=== PATIENT | female | born 1985 | race Caucasian/White ===

== ENCOUNTER 2024-05-11 09:19 | Emergency (ER) | payer OTHER, SELFPAY ==
[2024-05-11 09:21] VITALS: BP 135/93
--- NOTE | 2024-05-11 09:36 | ED.GENMED ---
History of Present Illness
General
Chief Complaint: Abdominal Symptoms
Source: patient
Exam Limitations: none
Time Seen by Provider: 05/11/24 09:27
Nursing documentation reviewed up to this point in time: agreed with
History of Present Illness
History of Present Illness:
38-year-old female with a past medical history of chronic back pain and opioid dependence who is status post total hysterectomy due to chronic vaginal bleeding after presents to the emergency room for evaluation of lower abdominal pain.
Patient reports onset of symptoms about 10 days ago and have been constant since that time. She reports a crampy pain suprapubic region radiates slightly more towards the left. Occasionally will become more sharp. She reports associated diarrhea,
nausea, vomiting. She says she has had some increased urinary frequency and incontinence of urine. She denies any dysuria or hematuria. She reports that she has been having fevers and chills. She says that symptoms have not improved and so
decided to come to the ER for evaluation. She denies any pain in the back or flank. She denies any cough, shortness of breath, chest pain. Denies URI symptoms. She denies similar symptoms in the past.
Past History
Past History
ED Past Medical History: Asthma, Hyperthyroidism and Other (Chronic low back pain, hypokalemia)
ED Past Surgical History: Gynecological (hysterectomy 2019) and Orthopedic (R shoulder surg)
Social History
Tobacco: Smoker
Alcohol: None
Drug: None
Personal: Single
Living: with family
Review of Systems
Review of Systems
All Other Systems: ROS reviewed and negative except as documented in HPI and ROS
Constitutional: Reports fever, fatigue and chills
EENT: Denies sore throat or runny nose
Respiratory: Denies cough or trouble breathing
Cardiac: Denies chest pain or palpitations
ABD/GI: Reports abdominal pain, nausea, vomiting and diarrhea
: Reports frequency and incontinence; Denies dysuria, flank pain or bleeding
Musculoskeletal: Denies neck pain or back pain
Neurological: Denies dizzy or headache
Phy Exam
Physical Exam
Physical Exam:
General: Awake, alert, oriented x3; appears mildly uncomfortable but nontoxic
Head: Normocephalic, atraumatic
Eyes: Conjunctiva normal, sclera anicteric
Throat: Airway intact, handling secretions
Neck: Trachea midline, supple without meningismus
Lungs: Clear to auscultation bilaterally, no wheezing, rales, rhonchi
Heart: Regular rate and rhythm, no murmurs, gallops, or rubs
Abd: Soft, non distended, tender to palpation across lower abdomen maximal in the suprapubic and left lower quadrant; no peritoneal signs, no palpable masses
Back: No CVA tenderness
Neuro: No gross deficits
Skin: no rash
Extremities: Warm well-perfused with no edema
Scores
Heart Failure Risk
Heart Failure Risk Score: Not Applicable
Heart Score for Chest Pain Patients
STEMI patient?: Not applicable
Withdrawal Assessment of Alcohol
Withdrawal Assessment Completed?: Not applicable
Course
Orders/Labs/Results
Orders:
Orders
05/11/24 09:27
Test Result ONCE
05/11/24 09:41
CT Abd/pelvis W Iv Cont Urgent
Comment:
Reason For Exam: lower abd pain (suprapubic-->LLQ)
0.9% Sodium Chloride 1000 ml [Nss] 1,000 ml IV BOLUS
Morphine Sulfate 4 mg IV NOW STA
Ondansetron Injectable [Zofran] 4 mg IV NOW STA
05/11/24 10:04
COVID-19 Antigen Urgent
Source: Nasal Swab
Complete Blood Count/With Diff Urgent
Comprehensive Metabolic Panel Urgent
HCG, Serum Qualitative Screen Urgent
Urinalysis Reflex To Culture Urgent
Date Specimen was Collected: 05/11/24
Time Specimen was Collected: 09:52
Urine Microscopic Reflex Cult Urgent
05/11/24 12:35
STOOL [C difficile Antigen & Toxins] Urgent
RUI Source: Feces/Stool
Specimen Description:
Stool Culture Urgent
RUI Source: Feces/Stool
Specimen Description:
05/11/24 12:37
Ciprofloxacin HCl [Cipro] 500 mg PO ONCE ONE
05/11/24 12:38
Electrocardiogram (*1) Urgent
Reason for Study: QTc Monitoring
EKG- Treatment ONCE
Abnormal Lab Results
05/11/24
10:04
MCH 33.6 H pg
(27.0-31.0)
Absolute Lymphs (auto) 1.0 L 10^3/uL
(1.2-3.4)
Neutrophils % 80.9 H %
(42.2-75.2)
Lymphocytes % 13.3 L %
(20.5-51.1)
Glucose 114 H mg/dl
(70-99)
Total Bilirubin 1.4 H mg/dl
(0.2-1.3)
Urine Ketones 1+ A
(Negative)
Ur Occult Blood Reflex Trace A
(Negative)
Leukocyte Esterase Rfl Trace A
(Negative)
Urine Bacteria (Reflex) Few A
(Negative)
05/11/24 10:04
05/11/24 10:04
Vital Signs
Initial and Last Documented VS:
Initial Vital Signs
Temp Pulse Resp BP Pulse Ox
36.6 C 89 18 135/93 99
05/11/24 09:21 05/11/24 09:21 05/11/24 09:21 05/11/24 09:21 05/11/24 09:21
Last Documented Vital Signs
Temp Pulse Resp BP Pulse Ox
36.6 C 89 18 135/93 98
05/11/24 09:21 05/11/24 09:21 05/11/24 09:21 05/11/24 09:21 05/11/24 10:45
MDM/Problems Addressed
Differential Diagnosis Includes:
Diverticulitis, UTI, colitis/enteritis, nephrolithiasis, appendicitis
MDM/Problems Addressed:
38-year-old female presents for evaluation of lower abdominal pain associate with nausea/vomiting/diarrhea and fever/chills as well as urinary symptoms�ongoing for about 10 days. Vital signs normal here. Physical exam as above. Place an IV check
labs including a CBC and a CMP. Swab for COVID. Will send for CT abdomen pelvis. Provide fluids, antiemetic, pain medication. Monitor closely reassess after the above.
Labs reviewed: CBC unremarkable, CMP no clinically significant abnormalities. Urinalysis negative for infection. COVID-negative. CT abdomen pelvis shows signs consistent with colitis which fits with her clinical picture of diarrhea with fever and
chills. No recent antibiotics or travel reported. Unable to provide stool sample here. Diarrhea is nonbloody however given the duration of symptoms she says for 10 days I think it is reasonable to cover with antibiotics. Her symptoms are
controlled here think she is stable for discharge. Allergic to penicillin and azithromycin, will start on Cipro x 5 days twice daily. Advised to return here with worsening symptoms or failure to improve in the next 48 to 72 hours. She feels
comfortable with this plan, indicated understanding. All questions answered.
*Radiology
Radiology exam reviewed: radiology read reviewed
*Pulse Oximetry
Patient hypoxic: no
*Critical Care Note
Total Time (30-74mins, 75-104mins- exclusive of procedures): Not Applicable
Data Reviewed
Source: patient and records
ED Attending Note
-
Portions of this chart may have been created with voice recognition software.� Occasional wrong word or��sound alike� substitutions may have occurred due to the inherent limitations of voice recognition software.
Discharge Plan
Departure
Patient Disposition: Home (Routine Discharge)
Date of Disposition: 05/11/24
Time of Disposition: 12:43
Patient with high blood pressure during this ER visit?: No
Discharge Problem:
Colitis
Instructions: Clear Liquid Diet, [place] Diet, Nausea and Vomiting, Adult (DC), Acute Diarrhea
Prescriptions:
New
ciprofloxacin HCl [Cipro] 500 mg tablet
500 mg PO BID 5 Days Qty: 10 0RF
ondansetron 4 mg tablet,disintegrating
4 mg PO BID PRN (Reason: nausea and vomiting) Qty: 10 0RF
No Action
levothyroxine 112 MCG tablet
112 mcg PO DAILY
oxycodone-acetaminophen 5 MG/325 MG tablet
1 tab PO TID PRN (Reason: pain) Qty: 12 0RF
ondansetron 4 mg tablet,disintegrating
4 mg PO TIDPRN PRN (Reason: nausea/vomiting) Qty: 7 0RF
Referrals:
NONE,* [Family Provider] -
Activity Restrictions/Additional Instructions:
Thank you for visiting the Emergency Department at [facility].
1. Please schedule a follow up appointment as directed. Call first thing tomorrow morning to make an appointment.
2. If indicated, please take your medications as instructed and indicated on discharge paperwork.
3. If any of your symptoms do not improve, or persist, or become more severe within 6-12 hours, please return to the emergency department for further care.
4. Please return to the emergency department if you develop a headache, neck pain/stiffness, fever greater than 100.4F, chest pain, shortness of breath, persistent nausea, vomiting, slurred speech, difficulty walking, numbness/tingling, weakness,
signs of infection or any other symptoms that are worrisome to you.
Please call [phone] if you have any questions.
Interventions
Interventions:
*Risk Screen - Suicide Last Done: 05/11/24 10:29
*General Assessment Last Done: 05/11/24 09:21
*Neglect/Abuse Screening Last Done: 05/11/24 10:29
ED- Fall Risk Assessment Last Done: 05/11/24 10:30
*ED COVID-19 Vaccine History Last Done: 05/11/24 09:21
QU-Nljdjw-Luzbcluvut Assessment Last Done: 05/11/24 10:30
Discharge Date and Time
Print Language: KENYAN
[2024-05-11] MEDS: ZOFRAN 4 MG IV (10:05)
[2024-05-11] MEDS: NSS 1000 IV (10:05)
[2024-05-11] MEDS: MORPHINE SULFATE 4 MG IV (10:05)
[2024-05-11 10:13] VITALS: BMI 34.4
[2024-05-11 10:25] LABS: Urine Albumin Trace (Neg - Trace); Urine Bilirubin Negative (Negative); Urine Character Clear (Clear); Urine Color Yellow; Urine Glucose Negative (Negative); Urine Ketone 1+ (Negative); Urine Leukocyte Trace (Negative); Urine Nitrite Negative (Negative); Urine Occult Blood Trace (Negative); Urine Urobilinogen Negative (Neg - 1+)
[2024-05-11 10:35] LABS: COVID-19 Antigen Negative (Negative)
[2024-05-11 10:36] LABS: HCG, Serum Qualitative Screen Negative
[2024-05-11 10:39] LABS: % Basophils 0.3 % (0-2); % Immature Granulocytes 0.3 % (0-0.5); % Lymphocytes 13.3 % (20.5-51.1); % Monocytes 5.2 % (1.7-9.3); % Neutrophils 80.9 % (42.2-75.2); Absolute Monocytes 0.4 10^3/uL (0.1-0.6); Absolute Neutrophils 5.9 10^3/uL (1.4-6.5); Hematocrit 41.6 % (37.0-47.0); Hemoglobin 15.2 g/dL (12.0-16.0); Mean Corp Hgb Conc. 36.5 g/dL (33.0-37.0); Mean Corpuscular Hgb 33.6 pg (27.0-31.0); Mean Corpuscular Volume 91.8 fL (81.0-99.0); Mean Platelet Volume 10.1 fL (7.4-10.4); Nucleated Red Blood Cells % 0 %; Platelet Count 200 10^3/uL (130-400); Red Blood Cell Count 4.53 10^6/uL (4.20-5.40); Red Cell Dist. Width 11.9 % (11.5-14.5); White Blood Cell Count 7.3 10^3/uL (4.8-10.8)
[2024-05-11 10:43] LABS: ALT (SGPT) 13 U/L (0-35); AST (SGOT) 25 U/L (14-36); Albumin 4.7 g/dl (3.5-5.0); Alkaline Phosphatase 89 U/L (38-126); Blood Urea Nitrogen 11 mg/dl (7-17); Calcium 10.1 mg/dl (8.4-10.2); Carbon Dioxide 22 mmol/L (22-30); Chloride 104 mmol/L (98-107); Estimated Creatinine Clearance 119 ml/min; Glucose 114 mg/dl (70-99); Total Bilirubin 1.4 mg/dl (0.2-1.3); Total Protein 7.5 g/dl (6.3-8.2); eGFR > 60.00
[2024-05-11 11:06] LABS: Sodium 140 mmol/L (135-145); Urine Squamous Cell >30 /LPF (Few)
[2024-05-11 11:07] LABS: Urine Urothelial Cell 0-2 /LPF (FEW)
[2024-05-11 11:08] LABS: Urine Bacteria Few (Negative); Urine Red Blood Cell 0-2 /HPF (0-2); Urine White Cell 0-2 /HPF (0-5)
[2024-05-11 12:08] VITALS: BP 126/81
[2024-05-11] MEDS: CIPRO 500 MG PO (12:46)
[2024-05-11 13:00] VITALS: BP 104/80
[2024-05-11 13:28] VITALS: BP 104/80
== END 2024-05-11 13:29 | disposition home or self-care (01) ==
LOC: EMR 09:19
PROVIDERS: EMERGENCY PHYSICIAN Emergency Medicine
DX: K52.9 Noninfective gastroenteritis and colitis, unspecified (principal); F17.200 Nicotine dependence, unspecified, uncomplicated; F11.20 Opioid dependence, uncomplicated
CPT/HCPCS: 99285; 96374; 96375; 96361; 74177; 80053; 81003; 81015; 84703; 85025; 87811; 93005; Q9967

== ENCOUNTER 2024-05-14 10:06 | Inpatient (IN) | payer OTHER, SELFPAY ==
[2024-05-14] VITALS (8 sets, daily range): BP systolic 108–151; BP diastolic 52–98; BMI 32.9
--- NOTE | 2024-05-14 08:41 | ED.GENMED ---
History of Present Illness
General
Chief Complaint: Abdominal Pain
Time Seen by Provider: 05/14/24 08:19
History of Present Illness
History of Present Illness:
38-year-old female presents to the emergency department for evaluation of worsening abdominal pain, vomiting, and diarrhea, was seen May 11 and diagnosed with acute colitis by CT scan. She was discharged on ciprofloxacin. States that she is
unable to tolerate her antibiotics over the past 24 hours due to vomiting. Also notes blood in her stool and that is distinctly new compared to prior symptoms. Denies any fevers or chills
Past History
Past History
ED Past Medical History: Asthma, Hyperthyroidism and Other (Chronic low back pain, hypokalemia)
ED Past Surgical History: Gynecological (hysterectomy 2019) and Orthopedic (R shoulder surg)
Social History
Tobacco: Smoker
Alcohol: None
Drug: None
Personal: Single
Living: with family
Review of Systems
Review of Systems
Allergies reviewed?: Yes
All Other Systems: ROS reviewed and negative except as documented in HPI and ROS
Phy Exam
Physical Exam
Physical Exam:
GEN: Ill appearing, vomiting
HEENT: Oral mucosa moist, no scleral icterus
Cardiac: Regular rate
Lung: No respiratory distress, no tachypnea
Abdomen: Soft, tender to all four quadrants
MSK: No gross deformity or injuries
Skin: Good color, no pallor or jaundice, no rashes
Neuro: AO x3, moves all extremities freely
Psych: Calm, cooperative
Course
Orders/Labs/Results
Orders:
Orders
05/14/24 08:38
Stool Culture Urgent
RUI Source: Feces/Stool
Specimen Description:
0.9% Sodium Chloride 1000 ml [Nss] 1,000 ml IV BOLUS
05/14/24 08:40
Electrocardiogram (*1) Urgent
Reason for Study: QTc Monitoring
EKG- Treatment ONCE
Morphine Sulfate 4 mg IV NOW STA
Ondansetron Injectable [Zofran] 4 mg IV NOW STA
05/14/24 08:43
Complete Blood Count/With Diff Urgent
Comprehensive Metabolic Panel Urgent
Lipase Urgent
05/14/24 09:54
Admit/Transfer Patient As Directed
Co-Sign Provider:
Level of Care: Inpatient admission
Assign to:: Medical/Surgical
Physician / Group: Hospitalist
Diagnosis: Colitis
Reason for Hospitalization: .
Expected length of stay greater than two midnights?: Yes
ELOS- Estimated Length of Stay in days: 3
I certify the patient meets the requirements for IP care: Yes
05/14/24 12:11
Consult Gastroenterology [GASTROINTESTINAL CONSULT] Routine
Consulting Provider: Lisa Baker
Was physician already notified: Yes
Reason for consult: Colitis
DX Deep Vein Thrombosis Video Routine
05/14/24 20:00
Heparin 5,000 units SC Q12
Abnormal Lab Results
05/14/24
08:43
WBC 4.7 L 10^3/uL
(4.8-10.8)
MCH 33.3 H pg
(27.0-31.0)
BUN 6 L mg/dl
(7-17)
Glucose 103 H mg/dl
(70-99)
05/14/24 08:43
05/14/24 08:43
Vital Signs
Initial and Last Documented VS:
Initial Vital Signs
Temp Pulse Resp BP Pulse Ox
97.9 F 84 18 151/95 100
05/14/24 07:27 05/14/24 07:27 05/14/24 07:27 05/14/24 07:27 05/14/24 07:27
Last Documented Vital Signs
Temp Pulse Resp BP Pulse Ox
97.6 F 56 16 145/74 98
05/14/24 12:15 05/14/24 12:15 05/14/24 12:15 05/14/24 12:15 05/14/24 12:15
MDM/Problems Addressed
MDM/Problems Addressed:
Due to the patient's progression of symptoms and lack of improvement antibiotics will admit to the hospital. IV antibiotics with stool cultures provided. Do not feel that there is any indication for repeat imaging at this time
*Critical Care Note
Total Time (30-74mins, 75-104mins- exclusive of procedures): Not Applicable
ED Attending Note
-
Portions of this chart may have been created with voice recognition software.� Occasional wrong word or��sound alike� substitutions may have occurred due to the inherent limitations of voice recognition software.
Discharge Plan
Departure
Patient Disposition: Admit
Date of Disposition: 05/14/24
Time of Disposition: 09:46
Admit to: Med/Surg
Presentation/result/management discussed w/ accepting MD/DO: Hospitalist
Discharge Problem:
Colitis
Interventions
Interventions:
*Risk Screen - Suicide Last Done: 05/14/24 08:00
*General Assessment Last Done: 05/14/24 08:00
*Neglect/Abuse Screening Last Done: 05/14/24 08:00
ED- Fall Risk Assessment Last Done: 05/14/24 08:00
*ED COVID-19 Vaccine History Last Done: 05/14/24 12:15
PH-Vocekx-Jrkhedoqbj Assessment Last Done: 05/14/24 08:00
[2024-05-14 09:10] LABS: ALT (SGPT) 11 U/L (0-35); AST (SGOT) 22 U/L (14-36); Albumin 4.6 g/dl (3.5-5.0); Alkaline Phosphatase 82 U/L (38-126); Blood Urea Nitrogen 6 mg/dl (7-17); Calcium 10.1 mg/dl (8.4-10.2); Carbon Dioxide 22 mmol/L (22-30); Chloride 104 mmol/L (98-107); Glucose 103 mg/dl (70-99); Lipase 91 U/L (23-300); Sodium 140 mmol/L (135-145); Total Bilirubin 1.2 mg/dl (0.2-1.3); Total Protein 7.4 g/dl (6.3-8.2); eGFR > 60.00
[2024-05-14 09:12] LABS: % Basophils 0.4 % (0-2); % Eosinophils 0.2 % (0-6); % Immature Granulocytes 0.2 % (0-0.5); % Monocytes 6.4 % (1.7-9.3); % Neutrophils 67.8 % (42.2-75.2); Absolute Lymphocytes 1.2 10^3/uL (1.2-3.4); Absolute Monocytes 0.3 10^3/uL (0.1-0.6); Absolute Neutrophils 3.2 10^3/uL (1.4-6.5); Hematocrit 42.2 % (37.0-47.0); Hemoglobin 15.6 g/dL (12.0-16.0); Mean Corpuscular Hgb 33.3 pg (27.0-31.0); Mean Corpuscular Volume 90.2 fL (81.0-99.0); Mean Platelet Volume 10.1 fL (7.4-10.4); Nucleated Red Blood Cells % 0 %; Platelet Count 210 10^3/uL (130-400); Red Blood Cell Count 4.68 10^6/uL (4.20-5.40); Red Cell Dist. Width 11.9 % (11.5-14.5); White Blood Cell Count 4.7 10^3/uL (4.8-10.8)
[2024-05-14] MEDS: ZOFRAN 4 MG IV ×3 (09:17→19:24)
[2024-05-14] MEDS: MORPHINE SULFATE 4 MG IV (09:17)
[2024-05-14] MEDS: NSS 1000 IV ×3 (09:17→20:16)
--- NOTE | 2024-05-14 09:51 | HPS.HSE ---
Family Physician
-
Family Physician: Jose Zamora
Chief Complaint
-
Abdominal pain with nausea vomiting and diarrhea for a few days duration, inability to tolerate oral antibiotics at home
History of Present Illness
38 years old female presented to the emergency room on May 11 with abdominal pain. She had nausea, vomiting and diarrhea. She denied fevers.
Scan of the abdomen and pelvis showed colitis and patient was discharged from the ER on oral ciprofloxacin. She did not have leukocytosis. Patient reported that she could not tolerate oral antibiotics at home and did not take any pills. She
presented today with abdominal discomfort, history of nausea, vomiting and diarrhea. She did not have vomiting or diarrhea in the emergency room. She did not have leukocytosis or fever. She was given intravenous morphine and Zofran with IV fluid
and she started to feel better. Patient has a chronic pain syndrome and reports taking Percocet at home, no recent prescription was filled per [facility]
Medical History
Past Medical History
Past Medical History: Reports Hypothyroidism and Other (back pain )
Past Surgical History: Reports None
Social History
Tobacco: Smoker
Alcohol: None
Drug: None
Personal:
Living: With Family
Employment: Not Employed
Family History
Family History: Not pertinent and Other (She denied history of inflammatory bowel disease )
Allergies / Home Medications
Allergies reflects when Allergies were last updated in [facility].
Home Medications with original date entered in [facility]
Allergy/Medication List:
Allergies
Allergy/AdvReac Type Severity Reaction Status Date / Time
azithromycin Allergy Unknown Hives Verified 05/11/24 09:23
aspirin Allergy red spots Verified 05/11/24 09:23
on skin
latex Allergy itching;swe Verified 05/11/24 09:23
lling
Penicillins Allergy Hives;swell Verified 05/11/24 09:23
ing
Home Medications
levothyroxine 112 mcg tablet 112 mcg PO DAILY Thyroid 11/15/21
oxycodone-acetaminophen 5 mg-325 mg tablet 1 tab PO TID PRN pain #12 tabs 10/05/21
ondansetron 4 mg disintegrating tablet 4 mg PO TIDPRN PRN nausea/vomiting #7 tabs 11/20/22
ciprofloxacin HCl 500 mg tablet (Cipro) 500 mg PO BID 5 days #10 tabs 05/11/24
ondansetron 4 mg disintegrating tablet 4 mg PO BID PRN nausea and vomiting #10 tabs 05/11/24
Review of Systems
-
History Source: Patient
A 12 point ROS was completed and negative except as noted: Yes
Constitutional: Denies Fever
EENT: Denies Sore Throat
Respiratory: Denies Cough
Cardiac: Denies Chest Pain
Abdomen/GI: Reports Abdominal Pain, Nausea, Vomiting and Diarrhea
: Denies Bleeding
Musculoskeletal: Reports Other (chronic back pain ); Denies Muscle Stiffness
Skin: Denies Rash
Neurological: Denies Numbness
Endocrine: Denies Temp Intolerance
Hematologic/Lymphatic: Denies Bruising
Psych: Denies Panic Disorder
Physical Exam
Vital Signs
Vital Signs
Temp Pulse Resp BP Pulse Ox
97.9 F 64 19 151/95 100
05/14/24 07:27 05/14/24 08:30 05/14/24 08:30 05/14/24 07:27 05/14/24 08:30
Physical Exam
General: No Apparent Distress and Comfortable
HEENT: Moist mucous membranes and Atraumatic
Respiratory: Clear
Cardiac: S1/S2 and Regular Rhythm
GI: Soft, Non Distended, Tender (lower abdomen ) and Other
Genito-urinary: No costovertebral tender
Musculoskeletal: No Clubbing, No Cyanosis and No Edema
Skin: Warm and Dry
Neuro: AO x 3 and Nonfocal/grossly intact
Psych: Calm and Intact Judgment/Insight
Laboratory Results
-
05/14/24 08:43
05/14/24 08:43
Laboratory Results
Total Bilirubin 1.2 mg/dl (0.2-1.3) 05/14/24 08:43
AST 22 U/L (14-36) 05/14/24 08:43
ALT 11 U/L (0-35) 05/14/24 08:43
Alkaline Phosphatase 82 U/L (38-126) 05/14/24 08:43
Lipase 91 U/L (23-300) 05/14/24 08:43
Impression/Plan
-
38 years old female presented with abdominal pain.
# Acute colitis of the transverse and descending colon, possible acute gastroenteritis related to food
Patient reported that started 10 days after eating a sandwich.
She reports inability to tolerate oral antibiotics at home.
She reported blood streaks that was seen upon wiping herself at home yesterday.
She reports pain is lower abdominal and generalized.
No fever, no leukocytosis.
No hypotension or tachycardia. No hypokalemia.
Will start the patient on supportive care including IV fluid, pain medicine and nausea medicine
Empiric ciprofloxacin
Obtain stool cultures if possible
No family history inflammatory bowel disease
Appreciate GI input
# History of chronic pain, use oxycodone at home.
Part the protocol, will do urine drug screen
Will follow
# Tobacco use, will give nicotine patch
# Hypothyroidism, continue Synthroid
# DVT and GI prophylaxis
Total time spent to see the patient, examine the patient on the floor, review data and lab results, and discuss the treatment plan with the patient, GI doctor, ED doctor and nursing staff around 75 minutes
--- NOTE | 2024-05-14 12:02 | CON.GI ---
Consultation
-
Date/Time Consultation Requested: 05/14/24
Date/Time Consultation Performed: 05/14/24
Requesting Provider: Dr. Henriquez
Performing Provider: Dr. Orr
Reason for Consultation: N/V/Diarrhea, colitis
Medical History
Chief Complaint / HPI
Chief Complaint: N/V/D
History of Present Illness:
Ani Mercado is a 38 y.o. female w/ pmhx hypothyroidism, chronic pain on narcotics, tobacco abuse who presents with intractable nausea, vomiting and diarrhea x 13 days. She was initially seen in the ER on May 11, found to have colitis on
imaging. It was presumed to be infectious and she was given a course of Ciprofloxacin, discharged home. However, she states due to her persistent nausea/vomiting, she was unable to tolerate the antibiotics and did not take any of the pills. She
returns today with ongoing symptoms, for which GI is consulted for. She states she has lost about 25 lb since symptom onset as she has been unable to tolerate PO. She is afebrile and hemodynamically stable. She received IV morphine and zofran upon
arrival, with improvement in symptoms. No episodes of diarrhea since admission. She also admits to some streaks of bright red blood with wiping, scant, mostly on toilet paper, stool is brown. She reports since she was a child being chronically
constipated, but never thought it was abnormal. She reports moving her bowels only once per month!! She denies family history of celiac disease, inflammatory bowel disease, CRC or colon polyps. She has never had a colonoscopy before.
Labs:
Tbili 1.4 --> 1.2, AST 22, aLT 11, Alk phos 82, Lipase 91, BUN 6/Cr. 0.8, WBC 4.7, Hgb 15.6, Plt 210
CT A/P w/ IV Contrast 05/11/24: Punctate hypodensity within the left hepatic lobe, too small to accurately characterize, but likely represents cyst and appears unchanged from prior study. Bile ducts, gallbladder and pancreas appear normal. Spleen is
mildly enlarged. There is mild wall thickening of the transverse and descending colon. Evidence of hysterectomy. Tiny fat-containing umbilical hernia.
Past Medical History
Past Medical History: Hypothyroidism and Other (chronic pain)
Past Surgical History: Other (hysterectomy )
Social History
Tobacco: Smoker
Alcohol: None
Drug: None
Personal:
Living: Alone
Employment: Not Employed
Family History
Family History: Reviewed & Not Pertinent
Allergies / Home Medications
Allergy/AdvReac Type Severity Reaction Status Date / Time
azithromycin Allergy Unknown Hives Verified 05/11/24 09:23
aspirin Allergy red spots Verified 05/11/24 09:23
on skin
latex Allergy itching;swe Verified 05/11/24 09:23
lling
Penicillins Allergy Hives;swell Verified 05/11/24 09:23
ing
�Medication �Instructions �Recorded
levothyroxine 112 mcg tablet 112 mcg PO DAILY Thyroid 07/22/21
oxycodone-acetaminophen 5 mg-325 1 tab PO TID PRN pain #12 tabs 10/05/21
mg tablet
ondansetron 4 mg disintegrating 4 mg PO TIDPRN PRN nausea/vomiting 11/20/22
tablet #7 tabs
ciprofloxacin HCl 500 mg tablet 500 mg PO BID 5 days #10 tabs 05/11/24
(Cipro)
ondansetron 4 mg disintegrating 4 mg PO BID PRN nausea and 05/11/24
tablet vomiting #10 tabs
Review of Systems
-
History Source: Patient
Vital Signs
Temp Pulse Resp BP Pulse Ox
97.9 F 54 10 125/86 98
05/14/24 07:27 05/14/24 11:15 05/14/24 11:15 05/14/24 10:00 05/14/24 11:15
Physical Exam
Exam
GENERAL: In no acute distress
ABDOMEN: Obese; +BS; soft, non-tender and non-distended;MATEUSZ: external hemorrhoids, +light brown stool
Results
WBC 4.7 10^3/uL (4.8-10.8) L 05/14/24 08:43
Hgb 15.6 g/dL (12.0-16.0) 05/14/24 08:43
Hct 42.2 % (37.0-47.0) 05/14/24 08:43
MCV 90.2 fL (81.0-99.0) 05/14/24 08:43
Plt Count 210 10^3/uL (130-400) 05/14/24 08:43
Absolute Neuts (auto) 3.2 10^3/uL (1.4-6.5) 05/14/24 08:43
Sodium 140 mmol/L (135-145) 05/14/24 08:43
Potassium 4.0 mmol/L (3.5-5.1) 05/14/24 08:43
Chloride 104 mmol/L (98-107) 05/14/24 08:43
Carbon Dioxide 22 mmol/L (22-30) 05/14/24 08:43
BUN 6 mg/dl (7-17) L 05/14/24 08:43
Creatinine 0.8 mg/dL (0.6-1.0) 05/14/24 08:43
Calcium 10.1 mg/dl (8.4-10.2) 05/14/24 08:43
Total Bilirubin 1.2 mg/dl (0.2-1.3) 05/14/24 08:43
AST 22 U/L (14-36) 05/14/24 08:43
ALT 11 U/L (0-35) 05/14/24 08:43
Alkaline Phosphatase 82 U/L (38-126) 05/14/24 08:43
Lipase 91 U/L (23-300) 05/14/24 08:43
Diagnostic Image Results:
Prior GI Procedures:
EGD:
Colonoscopy:
Assessment / Plan
-
38 y.o. female w/ pmhx hypothyroidism, chronic pain on narcotics, chronic constipation admitted for persistent nausea, vomiting and diarrhea x13 days, found to have colitis on imaging.
#Nausea/Vomiting
#Diarrhea
#Colitis--mild wall thickening of the transverse and descending colon
-Suspect clinical presentation is 2/2 viral gastroenteritis vs. less likely bacterial vs. inflammatory, though, low suspicion for this given lack of chronicity
-Small volume rectal bleeding, normal H&H with external hemorrhoids on exam, brown stool. Suspect benign anorectal pathology, however, given abnormal CT inconjunction with reported rectal bleeding, would advise outpatient colonoscopy to further
evaluate.
-Check TSH, celiac serologies, CRP
-if patient has diarrhea while in the hospital, please check stool culture, stool wbc, c.diff, giardia, O&P, fecal calprotectin
-supportive care, antiemetics
-OP f/u with GI for colonoscopy
-once acute illness resolves, need outpatient management of constipation given reported once monthly BMs-- anticipate she may require prolonged prep
Data Reviewed
-
CT Scan: Report Reviewed by me
-
-
Thank you for consultation and allowing me to participate in the patient's care. Please call the foreign legal consultant GI physician during the after hours with any questions or concerns.
[2024-05-14] MEDS: PROTONIX IV 40 MG IV (12:53)
[2024-05-14] MEDS: PERCOCET 5/325 2 TABLET PO ×3 (12:53→21:36)
[2024-05-14] MEDS: NICODERM TRANSDERMAL 14 MG TRANSDERM (13:10)
--- NOTE | 2024-05-14 13:41 | PTCARENOTE ---
Received patient from ED into room 2121. Patient AAOx3, VSS, ambulatory in room independently. Patient c/o generalized weakness d/t dehydration, poor appetite and recent weight loss >30 lbs d/t N/V/D and inability to keep food down. Patient started
on IVF at 125 ml/hr, full liquid diet entered. Patient c/o nausea and lower abdominal pain rated 9/10, medicated with PRN zofran and percocet - see NOV. MD made aware of patient complaints. Outstanding urine and stool samples noted and patient made
aware of need for samples. Patient states she is an everyday smoker, nicotine patch ordered and applied to L upper arm. Patient oriented to room and call chatman, states no concerns at this time.
[2024-05-14 14:02] LABS: Marijuana Positive (Negative); Tricyclic Antidepressants Negative (Negative)
[2024-05-14 14:03] LABS: Amphetamines Negative (Negative); Barbiturates Negative (Negative); Benzodiazepines Negative (Negative); Buprenorphine Negative (Negative); Cocaine Negative (Negative); Methadone Negative (Negative); Methamphetamines Negative (Negative); Opiates Positive (Negative); Phencyclidine Negative (Negative)
[2024-05-14 14:22] LABS: Fentanyl, Urine Negative (Negative)
--- NOTE | 2024-05-14 18:12 | PTCARENOTE ---
Patient voided in bathroom 100 ml yellow urine, sample sent down for UA; Patient bladder scanned post void per nephrology order, scan obtained with second RN Arina at bedside for 352 ml. Patient states she has urinated in bathroom 5-6 times today and
feels she is emptying bladder each time, denies any abdominal pain or pressure. Belly round, full, ascites. + bowel sounds, patient reports no BM today. Nephrology made aware of bladder scan, no new orders at this time.
--- NOTE | 2024-05-14 18:35 | PTCARENOTE ---
Patient reports no BM on this shift, continues with lower abdominal pain/cramping rated 9/10. PRN percocet given, order for K pad to lower abdomen placed by this RN.
[2024-05-14] MEDS: HEPARIN 5000 UNITS SC (20:14)
[2024-05-15] MEDS: PERCOCET 5/325 2 TABLET PO ×6 (01:37→22:24)
[2024-05-15] MEDS: NSS 1000 IV ×3 (04:03→23:42)
[2024-05-15] MEDS: SYNTHROID 112 MCG PO (04:09)
[2024-05-15] MEDS: ZOFRAN 4 MG IV ×3 (05:36→18:01)
[2024-05-15 07:05] VITALS: BP 115/73
[2024-05-15] MEDS: HEPARIN 5000 UNITS SC ×2 (07:57→19:50)
[2024-05-15] MEDS: NICODERM TRANSDERMAL 14 MG TRANSDERM (07:57)
[2024-05-15] MEDS: PROTONIX IV 40 MG IV (07:57)
[2024-05-15] MEDS: NSS (PRESERVATIVE FREE) 10 ML IV (08:35)
--- NOTE | 2024-05-15 09:18 | W.PN.HOSP.TC ---
Addendum entered and electronically signed by Ameya Henriquez MD 05/15/24 13:01:
Addendum
Failed advancing diet. Had nausea and one-time vomiting
Possible marijuana induced versus opioid induced. CT of abdomen and pelvis done 05/[address] back on liquid diet
Will order IV Reglan as needed
Will order empiric IV Rocephin
Will order repeat CT of abdomen and pelvis with IV and oral contrast
Will reach out to GI doctor to reevaluate
End
Total time spent to see the patient, examine the patient on the floor, review data and lab results, discuss the treatment plan with the patient, GI doctor, nursing staff around 55 minutes
Original Note:
Today's Communication/Plan
-
Likely dc today if tolerates diet to follow with GI in office
Adjust Synthroid dose,
Assessment / Plan
Assessment / Plan
Physical Exam
General: No Apparent Distress and Comfortable
HEENT: Moist mucous membranes and Atraumatic
Respiratory: Clear
Cardiac: S1/S2 and Regular Rhythm
GI: Soft, Non Distended, not Tender. Good bowel sounds.
Genito-urinary: No costovertebral tender
Musculoskeletal: No Clubbing, No Cyanosis and No Edema
Skin: Warm and Dry
Neuro: AO x 3 and Nonfocal/grossly intact
Psych: Calm and Intact Judgment/Insight.
38 years old female presented with abdominal pain.
# Acute colitis of the transverse and descending colon, possible acute gastroenteritis related to food. Patient reported that started 10 days after eating a sandwich.
No fever, no leukocytosis.
No hypotension or tachycardia. No hypokalemia.
No family history inflammatory bowel disease
Holding off on antibiotics due to clinical improvement
She feels better, would like to try regular food. She is taking Percocet but for her back pain
Appreciate GI input
# History of chronic pain, use oxycodone at home.
Part the protocol, urine drug screen positive for opiates and Marijuana
# Tobacco use, given nicotine patch, counseled to quit, she verbalized understanding
# Hypothyroidism, continue Synthroid
High TSH, counseled to taker her pills and on empty stomach, increased dose to 125 mcg for now, f/w PCP in office
# DVT and GI prophylaxis
Total discharge time spent to see the patient, examine the patient on the floor, review data and lab results, and discuss the discharge plan with the patient, GI doctor and nursing staff around 65 minutes
Anticipated Discharge: Today
Subjective/Interval History
-
Date of Service: May 15, 2024
No vomiting or diarrhea over night
She feels better, would like to try regular food
No fevers
Objective Data
-
Vital Signs:
Vital Signs
Temp Pulse Resp BP Pulse Ox
97.7 F 55 16 115/73 100
05/15/24 07:05 05/15/24 07:05 05/15/24 07:05 05/15/24 07:05 05/15/24 07:05
I&O
05/14/24 05/15/24 05/16/24
06:59 06:59 06:59
Intake Total 1200 / 1200
Output Total 150 / 150
Balance 1050 / 1050
--- NOTE | 2024-05-15 11:10 | CM ---
Met with patient at bedside; initial assessment completed
Pharmacy verified: [facility] @ [address] [facility], [place]
NO Family Physician: provided contact information for Family Medicine Residency Practice
Lives in an Apartment with 2 children ages 14 & 6; 4 steps to enter; bath has tub w/ shower
PLOF: independent with ambulation, stairs, and ADLs
NO DME
NO SNF history
Does not Drive
Significant other, Brian, will provide transport home
Plan: discharge to home; no needs
--- NOTE | 2024-05-15 13:00 | PTCARENOTE ---
Patient advanced to LR diet. Patient took two bites of sandwich and had N/V. MD made aware. Pt. placed on CLD. CAT of abd ordered with oral contrast. Patient updated at bedside.
[2024-05-15] MEDS: REGLAN 10 MG IV ×2 (13:58→22:25)
[2024-05-15] MEDS: OMNIPAQUE 50 ML PO (13:58)
[2024-05-15 15:10] VITALS: BP 131/82
--- NOTE | 2024-05-15 16:27 | CHAP ---
Ms. Mercado was welcoming - appreciated prayer. Emotional and spiritual support provided.
[2024-05-15] MEDS: STERILE WATER FOR INJECTION 10 ML IV (17:30)
[2024-05-15] MEDS: ROCEPHIN 1000 MG IV (17:31)
[2024-05-15 23:30] VITALS: BP 96/58
[2024-05-15 23:56] LABS: IgA 125 mg/dl (70-400)
[2024-05-16 00:27] VITALS: BP 120/60
[2024-05-16] MEDS: ZOFRAN 4 MG IV ×2 (03:05→11:31)
[2024-05-16] MEDS: PERCOCET 5/325 2 TABLET PO ×3 (03:05→11:32)
[2024-05-16] MEDS: SYNTHROID 112 MCG PO (05:10)
[2024-05-16] MEDS: NSS 1000 IV (05:10)
[2024-05-16 07:05] VITALS: BP 122/64
[2024-05-16] MEDS: NICODERM TRANSDERMAL 14 MG TRANSDERM (07:31)
[2024-05-16] MEDS: NSS (PRESERVATIVE FREE) 10 ML IV (07:32)
[2024-05-16] MEDS: HEPARIN 5000 UNITS SC (07:32)
[2024-05-16] MEDS: PROTONIX IV 40 MG IV (07:32)
[2024-05-16 10:18] LABS: ALT (SGPT) < 10 U/L (0-35); AST (SGOT) 20 U/L (14-36); Albumin 3.6 g/dl (3.5-5.0); Alkaline Phosphatase 67 U/L (38-126); Blood Urea Nitrogen 3 mg/dl (7-17); Calcium 8.8 mg/dl (8.4-10.2); Carbon Dioxide 22 mmol/L (22-30); Chloride 108 mmol/L (98-107); Estimated Creatinine Clearance 116 ml/min; Glucose 90 mg/dl (70-99); Sodium 139 mmol/L (135-145); Total Bilirubin 0.6 mg/dl (0.2-1.3); Total Protein 5.9 g/dl (6.3-8.2); eGFR > 60.00
[2024-05-16 10:29] LABS: Hematocrit 34.2 % (37.0-47.0); Hemoglobin 12.1 g/dL (12.0-16.0); Mean Corp Hgb Conc. 35.4 g/dL (33.0-37.0); Mean Corpuscular Hgb 32.9 pg (27.0-31.0); Mean Corpuscular Volume 92.9 fL (81.0-99.0); Mean Platelet Volume 10.1 fL (7.4-10.4); Platelet Count 164 10^3/uL (130-400); Red Blood Cell Count 3.68 10^6/uL (4.20-5.40); Red Cell Dist. Width 12.1 % (11.5-14.5)
--- NOTE | 2024-05-16 11:44 | CM ---
Patient seen today by CM.
States has the information regarding Family Medicine Residency program & will follow up with them.
Stated that her significant other would transport home. No needs.
PLAN: Discharge when medically stable to home. No needs.
significant other to transport.
[2024-05-16] MEDS: NSS IV (12:16)
--- NOTE | 2024-05-16 13:21 | W.DS.TRANS ---
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
-
Discharge Instructions:
Discharge Diagnosis/Procedures colitis
Diet Regular
Instructions:
Stand-Alone Forms:
Changes to Home Medications: No
Discharge Medications:
DC Medications w/original date entered in [facility]
levothyroxine 112 mcg tablet 112 mcg PO DAILY Thyroid #30 tabs 05/16/24
oxycodone-acetaminophen 5 mg-325 mg tablet 1 tab PO TID PRN pain #12 tabs 05/16/24
Home Medication Changes
Pending Results: Yes
Additional Pending Results:
Final stool culture
[2024-05-16 13:36] VITALS: BP 130/79
--- NOTE | 2024-05-16 13:55 | CM ---
CM met with patient today.
Discussed that she has information regarding Family Medicine Residency Program & will follow up with them.
States significant other will transport her home.
no needs.
PLAN: Discharge home today - no needs.
Brian significant other transport home.
[2024-05-17 10:10] LABS: CRP, Highly Sensitive 2.48 mg/L
[2024-05-17 23:47] LABS: Endomysial IgA Antibody Titer <1:10 (<1:10)
== END 2024-05-16 14:00 | disposition home or self-care (01) | DRG 392 ==
LOC: 2 NORTH 10:06
PROVIDERS: Physician Assistant; ADMITTING PHYSICIAN Internal Medicine; ATTENDING PHYSICIAN Internal Medicine; EMERGENCY PHYSICIAN Emergency Medicine; OTHER PHYSICIAN Internal Medicine; PRIMARYCARE PHYSICIAN Internal Medicine
DX: K52.9 Noninfective gastroenteritis and colitis, unspecified (principal); F11.20 Opioid dependence, uncomplicated; F17.200 Nicotine dependence, unspecified, uncomplicated; E03.9 Hypothyroidism, unspecified
CPT/HCPCS: 74177; 80053; 80306; 80307; 82784; 83516; 83690; 84439; 84443; 85025; 85027; 86141; 86231; 87045; 87046; 87427; 93005; 96361; 96374; 96375; 99285; 99406; Q9967